=== PATIENT | male | born 1970 | race Caucasian/White ===

== ENCOUNTER 2016-06-10 19:21 | Emergency (ER) | payer OTHER ==
[~2016-06-10] VITALS: Ht 193 cm; Wt 119.5 kg
[~2016-06-10 19:21] MED LIST: ALKA-SELTZER D1 EACH PO; ALKA-SELTZER P1 EAC2 PO; AMOX TR-K CLV1 EAC4 PO; ASPIR-LOW81 MG PO; BENZTROPINE ME0.5 MG PO; CELEXA20 MG PO; CLINORIL150 MG PO; CYCLOBENZAPRINE10 MG PO; DEPAKOTE ER500 MG PO; DEPAKOTE500 MG PO; ENDOCET 5-3251 EACH PO; FLAX SEED OIL1 EACH PO; FLOMAX0.4 MG PO; HYDROCHLOROTHIA25 MG PO; LITHIUM CARBON300 M1 PO; LITHIUM CARBON300 M2 PO; LITHIUM CARBON300 MG PO; LOVASTATIN40 MG PO; NORCO 5/3251 TABLET PO; NORVASC10 MG PO; PEPTO BISMOL240 ML PO; PRILOSEC20 MG PO; SEROQUEL50 MG PO; TESSALON200 MG PO; TRICOR145 MG PO; TRIFLUOPERAZINE2 MG PO; TYLENOL EXTRA500 MG PO
[2016-06-10 20:18] LABS: MCH 31.6 PG (29.0-34.0); MCHC 32.6 G/DL (30.0-36.0); MCV 96.7 FL (86-99); MEAN PLAT.VOLUME 9.9 uM^3 (9.0-12.4); PLATELET COUNT 209 K/uL (156-360); RBC DIS.WIDTH-CV 11.4 % (11.8-14.6); RBC DIS.WIDTH-SD 40.5 % (39-53); RED BLOOD COUNT 3.93 M/uL (4.00-5.50)
[2016-06-10 20:28] LABS: CHLORIDE 105 mEq/L (99-109); SODIUM 137 mEq/L (136-147)
[2016-06-10 20:29] LABS: GLUCOSE 93 mg/dL (70-99)
[2016-06-10 20:31] LABS: ANION GAP 9 MEQ/L (2-14)
[2016-06-10 20:33] LABS: GFR ESTIMATE (CALCULATED) > 59 mL/min/
[2016-06-10 20:34] LABS: UREA NITROGEN (BUN) 21 mg/dL (9-23)
[2016-06-10 20:41] LABS: TROP-I INTERPRETATION NEGATIVE; TROPONIN-I < 0.01 ng/mL (0.0-0.30)
[2016-06-10 22:17] LABS: TROP-I INTERPRETATION NEGATIVE; TROPONIN-I < 0.01 ng/mL (0.0-0.30)
[2016-06-10 22:49] VITALS: BP 169/102
== END 2016-06-10 22:50 | disposition home or self-care (01) ==
LOC: EME 19:21
PROVIDERS: Emergency Medicine
DX: R07.89 Other chest pain (principal); I10 Essential (primary) hypertension; E78.5 Hyperlipidemia, unspecified; K21.9 Gastro-esophageal reflux disease without esophagitis; F41.9 Anxiety disorder, unspecified; Z87.891 Personal history of nicotine dependence
CPT/HCPCS: 71020; 80048; 83880; 84484; 85027; 93005; 99281; 99284

== ENCOUNTER 2016-08-31 11:52 | Emergency (ER) | payer OTHER ==
[~2016-08-31] VITALS: Ht 180.3 cm; Wt 113.8 kg
[2016-08-31 13:24] LABS: HEMATOCRIT 40.1 % (38.0-50.0); MCH 31.5 PG (29.0-34.0); MCHC 31.9 G/DL (30.0-36.0); MCV 98.8 FL (86-99); MEAN PLAT.VOLUME 12.3 uM^3 (9.0-12.4); PLATELET COUNT 53 K/uL (156-360); RBC DIS.WIDTH-CV 11.2 % (11.8-14.6); RBC DIS.WIDTH-SD 41.1 % (39-53); RED BLOOD COUNT 4.06 M/uL (4.00-5.50); WHITE BLOOD COUNT 6.9 K/uL (4.1-10.2)
[2016-08-31 13:32] LABS: CHLORIDE 103 mEq/L (99-109); POTASSIUM 4.3 mEq/L (3.7-5.4); SODIUM 136 mEq/L (136-147)
[2016-08-31 13:34] LABS: GLUCOSE 105 mg/dL (70-99)
[2016-08-31 13:36] LABS: ANION GAP 10 MEQ/L (2-14)
[2016-08-31 13:38] LABS: GFR ESTIMATE (CALCULATED) > 59 mL/min/
[2016-08-31 13:39] LABS: UREA NITROGEN (BUN) 23 mg/dL (9-23)
[2016-08-31 13:48] LABS: TROP-I INTERPRETATION NEGATIVE; TROPONIN-I < 0.01 ng/mL (0.0-0.30)
[2016-08-31 16:16] LABS: D-DIMER ELISA < 0.15 mg/L FEU (< 0.57); TROP-I INTERPRETATION NEGATIVE; TROPONIN-I < 0.01 ng/mL (0.0-0.30)
[2016-08-31 17:58] VITALS: BP 129/91
== END 2016-08-31 18:05 | disposition home or self-care (01) ==
LOC: EME 11:52
PROVIDERS: Emergency Medicine
DX: R07.9 Chest pain, unspecified (principal); I10 Essential (primary) hypertension; E78.5 Hyperlipidemia, unspecified; K21.9 Gastro-esophageal reflux disease without esophagitis; R56.9 Unspecified convulsions; Z79.82 Long term (current) use of aspirin; Z87.891 Personal history of nicotine dependence
CPT/HCPCS: 71020; 80048; 84484; 85027; 85379; 93005; 99281; 99284

== ENCOUNTER 2016-10-25 22:04 | Emergency (ER) | payer OTHER ==
[~2016-10-25] VITALS: Ht 182.9 cm; Wt 116.5 kg
[2016-10-25 22:54] LABS: HEMATOCRIT 39.3 % (38.0-50.0); MCHC 33.1 G/DL (30.0-36.0); MCV 93.8 FL (86-99); MEAN PLAT.VOLUME 9.8 uM^3 (9.0-12.4); PLATELET COUNT 183 K/uL (156-360); RBC DIS.WIDTH-CV 11.1 % (11.8-14.6); RED BLOOD COUNT 4.19 M/uL (4.00-5.50); WHITE BLOOD COUNT 7.6 K/uL (4.1-10.2)
[2016-10-25 23:04] LABS: CHLORIDE 101 mEq/L (99-109); POTASSIUM 3.6 mEq/L (3.7-5.4); SODIUM 135 mEq/L (136-147)
[2016-10-25 23:06] LABS: GLUCOSE 96 mg/dL (70-99)
[2016-10-25 23:07] LABS: ANION GAP 10 MEQ/L (2-14)
[2016-10-25 23:08] LABS: TOTAL BILIRUBIN 0.4 mg/dL (0.0-1.0)
[2016-10-25 23:09] LABS: ALKALINE PHOSPHATASE 52 IU/L (3-129); GFR ESTIMATE (CALCULATED) > 59 mL/min/
[2016-10-25 23:11] LABS: UREA NITROGEN (BUN) 16 mg/dL (9-23)
[2016-10-25 23:13] LABS: LIPASE 42 U/L (1.0-51.0)
[2016-10-26 00:41] LABS: TROP-I INTERPRETATION NEGATIVE; TROPONIN-I < 0.01 ng/mL (0.0-0.30)
[2016-10-26 01:08] LABS: ADD MIUA? NO; BILIRUBIN NEGATIVE; BLOOD NEGATIVE; COLOR YELLOW ((YELLOW)); GLUCOSE (STRIP) NEGATIVE; KETONES NEGATIVE; LEUKOCYTES NEGATIVE; NITRITE NEGATIVE; PROTEIN (STRIP) NEGATIVE; SPECIFIC GRAVITY 1.011 (1.000-1.030); UCUL ADDED? NO
[2016-10-26 02:38] LABS: TROP-I INTERPRETATION NEGATIVE; TROPONIN-I < 0.01 ng/mL (0.0-0.30)
[2016-10-26] MEDS ORDERED: CARAFATE1 GM PO (04:40)
[2016-10-26 05:02] VITALS: BP 150/103
== END 2016-10-26 05:03 | disposition home or self-care (01) ==
LOC: EME 22:04
PROVIDERS: Emergency Medicine
DX: R07.9 Chest pain, unspecified (principal); R10.10 Upper abdominal pain, unspecified; I10 Essential (primary) hypertension; E78.5 Hyperlipidemia, unspecified; K21.9 Gastro-esophageal reflux disease without esophagitis; G40.909 Epilepsy, unspecified, not intractable, without status epilepticus; Z87.891 Personal history of nicotine dependence
CPT/HCPCS: 71020; 74177; 80053; 81003; 83690; 84484; 85027; 93005; 99281; 99285; J7030

== ENCOUNTER → 2016-11-30 | Outpatient (CLI) | payer MEDICARE, OTHER ==
[~2016-11-30] MED LIST changes: +CARAFATE1 GM PO
== END | disposition home or self-care (01) ==
LOC: CDC 09:30
DX: Z01.810 Encounter for preprocedural cardiovascular examination (principal); M25.561 Pain in right knee; M23.251 Derangement of posterior horn of lateral meniscus due to old tear or injury, right knee; M22.2X9 Patellofemoral disorders, unspecified knee; I45.4 Nonspecific intraventricular block; R94.31 Abnormal electrocardiogram [ECG] [EKG]
CPT/HCPCS: 93000

== ENCOUNTER 2016-12-29 09:09 | Observation (INO) | payer OTHER ==
[~2016-12-29] VITALS: Ht 185.4 cm; Wt 111.7 kg
[~2016-12-29 09:09] MED LIST changes: -ASPIR-LOW81 MG PO; +BAYER CHEWABLE81 MG PO
[2016-12-29 09:45] LABS: EOSINOPHIL (%) 0.3 % (0-5); HEMATOCRIT 42.9 % (38.0-50.0); IMMATURE GRANULOCYTE (%) 1.5 % (0.0-0.7); IMMATURE GRANULOCYTE COUNT 0.1 K/uL; INSTRUMENT ABS NEUTROPHIL CT 3.2 K/uL; LYMPHOCYTE COUNT 1.8 K/uL (1.0-2.8); MCH 30.5 PG (29.0-34.0); MCHC 32.9 G/DL (30.0-36.0); MCV 92.9 FL (86-99); MEAN PLAT.VOLUME 10.3 uM^3 (9.0-12.4); MONOCYTE (%) 12.6 % (3-12); MONOCYTE COUNT 0.7 K/uL (0-0.8); NEUTROPHIL COUNT 3.2 K/uL (1.8-6.4); PLATELET COUNT 243 K/uL (156-360); RBC DIS.WIDTH-CV 11.2 % (11.8-14.6); RBC DIS.WIDTH-SD 38.2 % (39-53); RED BLOOD COUNT 4.62 M/uL (4.00-5.50); WHITE BLOOD COUNT 5.9 K/uL (4.1-10.2)
[2016-12-29 10:05] LABS: TROP-I INTERPRETATION NEGATIVE; TROPONIN-I < 0.01 ng/mL (0.0-0.30)
[2016-12-29 10:45] LABS: CHLORIDE 104 mEq/L (99-109); POTASSIUM 4.4 mEq/L (3.7-5.4); SODIUM 139 mEq/L (136-147)
[2016-12-29 10:47] LABS: GLUCOSE 129 mg/dL (70-99)
[2016-12-29 10:48] LABS: ANION GAP 12 MEQ/L (2-14)
[2016-12-29 10:50] LABS: GFR ESTIMATE (CALCULATED) > 59 mL/min/
[2016-12-29 10:51] LABS: UREA NITROGEN (BUN) 17 mg/dL (9-23)
[2016-12-29] MEDS ORDERED: HYDROCHLOROTH12.5 M3 PO (12:27)
[2016-12-29] MEDS ORDERED: PROTONIX40 MG PO (12:29)
[2016-12-29] MEDS ORDERED: MOTRIN800 MG PO (12:55)
[2016-12-29] MEDS ORDERED: BENGAY ULTRA S113 GM TP (12:58)
[2016-12-29] MEDS ORDERED: MELATONIN3 MG PO (12:58)
[2016-12-29 14:00] VITALS: BP 121/86
[2016-12-29 15:32] VITALS: BP 132/85
[2016-12-29 16:10] LABS: TROP-I INTERPRETATION NEGATIVE; TROPONIN-I < 0.01 ng/mL (0.0-0.30)
[2016-12-29 19:00] VITALS: BP 137/83
[2016-12-29 22:04] LABS: TROP-I INTERPRETATION NEGATIVE; TROPONIN-I < 0.01 ng/mL (0.0-0.30)
[2016-12-30 00:30] VITALS: BP 160/87
[2016-12-30 04:07] VITALS: BP 130/77
[2016-12-30 07:17] VITALS: BP 113/59
[2016-12-30 10:34] VITALS: BP 133/78
[2016-12-30] MEDS ORDERED: LOPRESSOR25 MG PO (12:15)
== END 2016-12-30 15:59 | disposition home or self-care (01) ==
LOC: EME 09:09 → 5WEST 11:43 → EDOF 11:43 → ENRESERV 11:49 → 5WEST 13:27
PROVIDERS: Emergency Medicine; Internal Medicine
DX: R07.89 Other chest pain (principal); R94.31 Abnormal electrocardiogram [ECG] [EKG]; I16.0 Hypertensive urgency; I10 Essential (primary) hypertension; E78.5 Hyperlipidemia, unspecified; G40.909 Epilepsy, unspecified, not intractable, without status epilepticus; F79 Unspecified intellectual disabilities; R42 Dizziness and giddiness; K21.9 Gastro-esophageal reflux disease without esophagitis; Z87.891 Personal history of nicotine dependence
CPT/HCPCS: 71010; 80048; 84484; 85025; 93005; 99281; 99285; G0378; J1650; J2270

== ENCOUNTER 2017-01-04 18:28 | Emergency (ER) | payer OTHER ==
[~2017-01-04] VITALS: Ht 188 cm; Wt 110.0 kg
[~2017-01-04 18:28] MED LIST changes: +BENGAY ULTRA S113 GM TP; +HYDROCHLOROTH12.5 M3 PO; +LOPRESSOR25 MG PO; +MELATONIN3 MG PO; +MOTRIN800 MG PO; +PROTONIX40 MG PO
[2017-01-04 18:53] LABS: HEMATOCRIT 40.7 % (38.0-50.0); MCH 31.4 PG (29.0-34.0); MCHC 33.9 G/DL (30.0-36.0); MCV 92.5 FL (86-99); MEAN PLAT.VOLUME 10.3 uM^3 (9.0-12.4); PLATELET COUNT 249 K/uL (156-360); RBC DIS.WIDTH-CV 11.3 % (11.8-14.6); RBC DIS.WIDTH-SD 38.6 % (39-53); WHITE BLOOD COUNT 7.5 K/uL (4.1-10.2)
[2017-01-04 19:06] LABS: CHLORIDE 108 mEq/L (99-109); POTASSIUM 3.7 mEq/L (3.7-5.4); SODIUM 139 mEq/L (136-147)
[2017-01-04 19:06] LABS: D-DIMER ELISA < 150.00 ng/mLDDU (<230)
[2017-01-04 19:08] LABS: GLUCOSE 134 mg/dL (70-99)
[2017-01-04 19:12] LABS: ALKALINE PHOSPHATASE 46 IU/L (3-129); ANION GAP 12 MEQ/L (2-14); GFR ESTIMATE (CALCULATED) > 59 mL/min/
[2017-01-04 19:13] LABS: TOTAL BILIRUBIN 0.4 mg/dL (0.0-1.0); UREA NITROGEN (BUN) 22 mg/dL (9-23)
[2017-01-04 19:15] LABS: TROP-I INTERPRETATION NEGATIVE; TROPONIN-I < 0.01 ng/mL (0.0-0.30)
[2017-01-04 19:18] LABS: LIPASE 46 U/L (1.0-51.0)
[2017-01-04 21:04] LABS: TROP-I INTERPRETATION NEGATIVE; TROPONIN-I < 0.01 ng/mL (0.0-0.30)
[2017-01-04 21:54] VITALS: BP 148/103
[2017-01-05] MEDS ORDERED: TYLENOL WITH C1 EACH PO (13:01)
== END 2017-01-04 21:54 | disposition home or self-care (01) ==
LOC: EME 18:28
PROVIDERS: Emergency Medicine
DX: R07.9 Chest pain, unspecified (principal); E78.5 Hyperlipidemia, unspecified; I10 Essential (primary) hypertension; K21.9 Gastro-esophageal reflux disease without esophagitis; R56.9 Unspecified convulsions; N40.0 Benign prostatic hyperplasia without lower urinary tract symptoms; F41.9 Anxiety disorder, unspecified; Z87.891 Personal history of nicotine dependence
CPT/HCPCS: 80048; 80053; 83690; 84484; 85027; 85379; 93005; 99281; 99285; J7030

== ENCOUNTER 2017-01-05 08:30 | Emergency (ER) | payer OTHER ==
[~2017-01-05] VITALS: Ht 188 cm; Wt 113.8 kg
[2017-01-05 09:19] LABS: BASOPHIL COUNT 0.1 K/uL (0-0.1); EOSINOPHIL (%) 0.7 % (0-5); EOSINOPHIL COUNT 0.1 K/uL (0-0.3); HEMATOCRIT 40.7 % (38.0-50.0); IMMATURE GRANULOCYTE (%) 1.4 % (0.0-0.7); IMMATURE GRANULOCYTE COUNT 0.1 K/uL; INSTRUMENT ABS NEUTROPHIL CT 4.1 K/uL; LYMPHOCYTE COUNT 2.4 K/uL (1.0-2.8); MCH 30.9 PG (29.0-34.0); MCHC 32.9 G/DL (30.0-36.0); MCV 93.8 FL (86-99); MEAN PLAT.VOLUME 10.2 uM^3 (9.0-12.4); MONOCYTE (%) 11.2 % (3-12); MONOCYTE COUNT 0.9 K/uL (0-0.8); NEUTROPHIL (%) 54.1 % (45-76); NEUTROPHIL COUNT 4.1 K/uL (1.8-6.4); PLATELET COUNT 228 K/uL (156-360); RBC DIS.WIDTH-CV 11.4 % (11.8-14.6); RBC DIS.WIDTH-SD 39.1 % (39-53); RED BLOOD COUNT 4.34 M/uL (4.00-5.50); WHITE BLOOD COUNT 7.6 K/uL (4.1-10.2)
[2017-01-05 09:36] LABS: CHLORIDE 105 mEq/L (99-109); POTASSIUM 3.8 mEq/L (3.7-5.4); SODIUM 139 mEq/L (136-147)
[2017-01-05 09:39] LABS: GLUCOSE 104 mg/dL (70-99)
[2017-01-05 09:40] LABS: ANION GAP 11 MEQ/L (2-14)
[2017-01-05 09:42] LABS: ALKALINE PHOSPHATASE 48 IU/L (3-129); GFR ESTIMATE (CALCULATED) > 59 mL/min/
[2017-01-05 09:43] LABS: UREA NITROGEN (BUN) 18 mg/dL (9-23)
[2017-01-05 09:46] LABS: LIPASE 31 U/L (1.0-51.0); TROP-I INTERPRETATION NEGATIVE; TROPONIN-I < 0.01 ng/mL (0.0-0.30)
[2017-01-05 09:47] LABS: TOTAL BILIRUBIN 0.6 mg/dL (0.0-1.0)
[2017-01-05 11:53] LABS: TROP-I INTERPRETATION NEGATIVE; TROPONIN-I < 0.01 ng/mL (0.0-0.30)
[2017-01-05] MEDS ORDERED: TYLENOL WITH C1 EACH PO (13:01)
[2017-01-05 13:19] VITALS: BP 146/97
== END 2017-01-05 13:19 | disposition home or self-care (01) ==
LOC: EME 08:30
PROVIDERS: Emergency Medicine
DX: R07.89 Other chest pain (principal); R10.9 Unspecified abdominal pain; E78.5 Hyperlipidemia, unspecified; I10 Essential (primary) hypertension; K21.9 Gastro-esophageal reflux disease without esophagitis; F70 Mild intellectual disabilities; F41.9 Anxiety disorder, unspecified; R56.9 Unspecified convulsions; Z87.891 Personal history of nicotine dependence
CPT/HCPCS: 71010; 80053; 83690; 84484; 85025; 93005; 99281; 99285; J1885

== ENCOUNTER 2017-03-03 15:50 | Emergency (ER) | payer OTHER ==
[~2017-03-03] VITALS: Ht 188 cm; Wt 118.2 kg
[~2017-03-03 15:50] MED LIST changes: +TYLENOL WITH C1 EACH PO
[2017-03-03 16:53] LABS: HEMATOCRIT 39.8 % (38.0-50.0); HEMOGLOBIN 13.1 G/DL (12.5-16.6); MCH 30.5 PG (29.0-34.0); MCHC 32.9 G/DL (30.0-36.0); MCV 92.8 FL (86-99); PLATELET COUNT 215 K/uL (156-360); RBC DIS.WIDTH-CV 12.1 % (11.8-14.6); RBC DIS.WIDTH-SD 41.6 % (39-53); RED BLOOD COUNT 4.29 M/uL (4.00-5.50); WHITE BLOOD COUNT 10.8 K/uL (4.1-10.2)
[2017-03-03 17:09] LABS: CHLORIDE 107 mEq/L (99-109); POTASSIUM 4.1 mEq/L (3.7-5.4); SODIUM 139 mEq/L (136-147)
[2017-03-03 17:11] LABS: GLUCOSE 119 mg/dL (70-99)
[2017-03-03 17:15] LABS: CREATININE 0.9 mg/dL (0.6-1.3); GFR ESTIMATE (CALCULATED) > 59 mL/min/ (58.99-99999)
[2017-03-03 17:16] LABS: TROP-I INTERPRETATION NEGATIVE; TROPONIN-I < 0.01 ng/mL (0.0-0.30); UREA NITROGEN (BUN) 16 mg/dL (9-23)
[2017-03-03 19:44] VITALS: BP 147/105
== END 2017-03-03 20:22 | disposition home or self-care (01) ==
LOC: EME 15:50
PROVIDERS: Emergency Medicine Emergency Medical Services
DX: R07.9 Chest pain, unspecified (principal); R10.9 Unspecified abdominal pain; F41.9 Anxiety disorder, unspecified; K21.9 Gastro-esophageal reflux disease without esophagitis; I10 Essential (primary) hypertension; E78.5 Hyperlipidemia, unspecified; R56.9 Unspecified convulsions; N40.0 Benign prostatic hyperplasia without lower urinary tract symptoms; Z87.891 Personal history of nicotine dependence
CPT/HCPCS: 71046; 80048; 84484; 85027; 93005; 99281; 99285; J2060

== ENCOUNTER 2017-06-30 22:49 | Observation (INO) | payer OTHER ==
[~2017-06-30] VITALS: Ht 190.5 cm; Wt 120.0 kg
[2017-06-30 23:28] LABS: HEMATOCRIT 39.9 % (38.0-50.0); HEMOGLOBIN 13.4 G/DL (12.5-16.6); MCH 29.9 PG (29.0-34.0); MCHC 33.6 G/DL (30.0-36.0); MCV 89.1 FL (86-99); PLATELET COUNT 247 K/uL (156-360); RBC DIS.WIDTH-CV 11.9 % (11.8-14.6); RBC DIS.WIDTH-SD 38.5 % (39-53); RED BLOOD COUNT 4.48 M/uL (4.00-5.50); WHITE BLOOD COUNT 7.7 K/uL (4.1-10.2)
[2017-06-30 23:37] LABS: ALBUMIN 4.1 g/dL (3.2-4.8)
[2017-06-30 23:38] LABS: CHLORIDE 101 mEq/L (99-109); POTASSIUM 3.8 mEq/L (3.7-5.4); SODIUM 138 mEq/L (136-147)
[2017-06-30 23:40] LABS: GLUCOSE 101 mg/dL (70-99); TOTAL PROTEIN 6.6 g/dL (6.4-8.3)
[2017-06-30 23:42] LABS: TOTAL BILIRUBIN 0.2 mg/dL (0.0-1.0)
[2017-06-30 23:43] LABS: ALKALINE PHOSPHATASE 54 IU/L (3-129)
[2017-06-30 23:44] LABS: CREATININE 0.8 mg/dL (0.6-1.3); GFR ESTIMATE (CALCULATED) > 59 mL/min/ (58.99-99999)
[2017-06-30 23:45] LABS: AST (GOT) 25 IU/L (2-34); UREA NITROGEN (BUN) 10 mg/dL (9-23)
[2017-06-30 23:46] LABS: ALT (GPT) 25 IU/L (3-49)
[2017-06-30 23:47] LABS: LIPASE 47 U/L (1.0-51.0)
[2017-06-30 23:56] LABS: TROP-I INTERPRETATION NEGATIVE; TROPONIN-I < 0.01 ng/mL (0.0-0.30)
[2017-07-01 02:33] LABS: TROP-I INTERPRETATION NEGATIVE; TROPONIN-I < 0.01 ng/mL (0.0-0.30)
[2017-07-01 03:42] LABS: VALPROIC ACID (DEPAKOTE) 62.1 MCG/ML (50-100)
[2017-07-01] MEDS ORDERED: METOPROLOL TART50 MG PO (04:56)
[2017-07-01] MEDS ORDERED: PRILOSEC20 MG PO (05:06)
[2017-07-01] MEDS ORDERED: DOCUPRENE100 MG PO (05:08)
[2017-07-01] MEDS ORDERED: RANITIDINE HCL300 MG PO (05:11)
[2017-07-01] MEDS ORDERED: CALCIUM 500 MG1 EAC2 PO (05:13)
[2017-07-01 06:20] VITALS: BP 171/97
[2017-07-01 07:09] VITALS: BP 140/81
[2017-07-01 08:42] LABS: TROP-I INTERPRETATION NEGATIVE; TROPONIN-I < 0.01 ng/mL (0.0-0.30)
[2017-07-01] MEDS ORDERED: ZITHROMAX250 MG PO (09:36)
[2017-07-01 11:39] VITALS: BP 175/108
[2017-07-01 15:11] LABS: TROP-I INTERPRETATION NEGATIVE; TROPONIN-I 0.01 ng/mL (0.0-0.30)
== END 2017-07-01 16:12 | disposition home or self-care (01) ==
LOC: EME 22:49 → EDOF 07-01 04:10 → 4SOUTH 07-01 04:10 → ENRESERV 07-01 04:15 → 4SOUTH 07-01 06:00
PROVIDERS: Emergency Medicine; Physician Assistant
DX: J40 Bronchitis, not specified as acute or chronic (principal); R07.89 Other chest pain; I10 Essential (primary) hypertension; E78.5 Hyperlipidemia, unspecified; G40.909 Epilepsy, unspecified, not intractable, without status epilepticus; F70 Mild intellectual disabilities; Z87.891 Personal history of nicotine dependence; Z79.82 Long term (current) use of aspirin
CPT/HCPCS: 71046; 74177; 80053; 80164; 83605; 83690; 84484; 85027; 93005; 99281; 99285; G0378; J1644; J7030; S0028

== ENCOUNTER 2017-08-29 15:12 | Emergency (ER) | payer OTHER ==
[~2017-08-29] VITALS: Ht 182.9 cm; Wt 118.2 kg
[~2017-08-29 15:12] MED LIST changes: +ASPIR 8181 M1 PO; -BAYER CHEWABLE81 MG PO; +CALCIUM 500 MG1 EAC2 PO; +METOPROLOL TART50 MG PO; +RANITIDINE HCL300 MG PO; +SEROQUEL100 MG PO; -SEROQUEL50 MG PO; +STOOL SOFTENER100 M1 PO; +ZITHROMAX250 MG PO
[2017-08-29 16:11] LABS: HEMATOCRIT 41.9 % (38.0-50.0); MCH 29.9 PG (29.0-34.0); MCHC 33.4 G/DL (30.0-36.0); MCV 89.3 FL (86-99); RBC DIS.WIDTH-CV 12.3 % (11.8-14.6); RBC DIS.WIDTH-SD 39.8 % (39-53); RED BLOOD COUNT 4.69 M/uL (4.00-5.50)
[2017-08-29 16:22] LABS: CHLORIDE 104 mEq/L (99-109); POTASSIUM 4.2 mEq/L (3.7-5.4); SODIUM 141 mEq/L (136-147)
[2017-08-29 16:23] LABS: GLUCOSE 99 mg/dL (70-99)
[2017-08-29 16:26] LABS: SERUM ETHYL ALCOHOL < 10 mg/dL
[2017-08-29 16:27] LABS: CREATININE 1.1 mg/dL (0.6-1.3); GFR ESTIMATE (CALCULATED) > 59 mL/min/ (58.99-99999)
[2017-08-29 16:28] LABS: UREA NITROGEN (BUN) 13 mg/dL (9-23)
[2017-08-29 16:35] LABS: PLATELET COUNT 316 K/uL (156-360)
[2017-08-29 17:11] LABS: AMPHETAMINE NEGATIVE (500 ng/mL); BARBITURATES NEGATIVE (200 ng/mL); BENZODIAZEPINES NEGATIVE (150 ng/mL); BUPRENORPHINE NEGATIVE (10 ng/mL); COCAINE NEGATIVE (150 ng/mL); METHADONE NEGATIVE (200 ng/mL); METHAMPHETAMINE NEGATIVE (500 ng/mL); OPIATES (MORPHINE) NEGATIVE (100 ng/mL); OXYCODONE NEGATIVE (100 ng/mL); PHENCYCLIDINE NEGATIVE (25 ng/mL); PROPOXYPHENE NEGATIVE (300 ng/mL); THC CANNABINOIDS NEGATIVE (50 ng/mL); TRICYCLIC ANTIDEPRESSANTS NEGATIVE (300 ng/mL)
[2017-08-29 18:15] VITALS: BP 205/152
[2017-08-31] MEDS ORDERED: CRESTOR40 MG PO (12:34)
[2017-08-31] MEDS ORDERED: MIRALAX17 GM PO (12:40)
[2017-08-31] MEDS ORDERED: [UNRECOGNIZED DRUG - OTHER] TP (12:41)
[2017-08-31] MEDS ORDERED: COLACE100 MG PO (12:41)
== END 2017-08-29 18:16 | disposition home or self-care (01) ==
LOC: EME 15:12
DX: F32.9 Major depressive disorder, single episode, unspecified (principal); I10 Essential (primary) hypertension; E78.5 Hyperlipidemia, unspecified; Z79.82 Long term (current) use of aspirin; Z87.891 Personal history of nicotine dependence
CPT/HCPCS: 80048; 85027; 90839; 99281; 99285; G0480

== ENCOUNTER → 2017-09-02 | Outpatient (CLI) | payer OTHER ==
[~2017-09-02] VITALS: Ht 190.5 cm; Wt 118.4 kg
[~2017-09-02] MED LIST changes: +COLACE100 MG PO; +CRESTOR40 MG PO; +MIRALAX17 GM PO; +[UNRECOGNIZED DRUG - OTHER] TP
== END | disposition home or self-care (01) ==
LOC: AMB 10:30
DX: K29.70 Gastritis, unspecified, without bleeding (principal); K31.7 Polyp of stomach and duodenum; D12.2 Benign neoplasm of ascending colon; D12.3 Benign neoplasm of transverse colon; D12.5 Benign neoplasm of sigmoid colon; K63.5 Polyp of colon; Z86.010 Personal history of colon polyps; K64.8 Other hemorrhoids; I10 Essential (primary) hypertension; E66.3 Overweight; Z68.33 Body mass index [BMI] 33.0-33.9, adult; Z87.891 Personal history of nicotine dependence; G40.909 Epilepsy, unspecified, not intractable, without status epilepticus
CPT/HCPCS: 88305; 88342 TC; J2250

== ENCOUNTER 2017-09-22 03:18 | Emergency (ER) | payer OTHER ==
[~2017-09-22] VITALS: Ht 182.9 cm; Wt 117.0 kg
[2017-09-22 04:12] LABS: BASOPHIL (%) 0.7 % (0-1); BASOPHIL COUNT 0.1 K/uL (0-0.1); EOSINOPHIL (%) 0.9 % (0-5); EOSINOPHIL COUNT 0.1 K/uL (0-0.3); HEMATOCRIT 43.6 % (38.0-50.0); HEMOGLOBIN 14.2 G/DL (12.5-16.6); IMMATURE GRANULOCYTE (%) 1.9 % (0.0-0.7); LYMPHOCYTE (%) 31.5 % (15-42); LYMPHOCYTE COUNT 2.5 K/uL (1.0-2.8); MCH 29.3 PG (29.0-34.0); MCHC 32.6 G/DL (30.0-36.0); MCV 90.1 FL (86-99); MONOCYTE (%) 8.7 % (3-12); MONOCYTE COUNT 0.7 K/uL (0-0.8); NEUTROPHIL (%) 56.3 % (45-76); NEUTROPHIL COUNT 4.5 K/uL (1.8-6.4); PLATELET COUNT 276 K/uL (156-360); RBC DIS.WIDTH-CV 12.7 % (11.8-14.6); RBC DIS.WIDTH-SD 42.1 % (39-53); RED BLOOD COUNT 4.84 M/uL (4.00-5.50)
[2017-09-22 04:23] LABS: ALBUMIN 4.6 g/dL (3.2-4.8); CHLORIDE 102 mEq/L (99-109); POTASSIUM 3.9 mEq/L (3.7-5.4); SODIUM 139 mEq/L (136-147)
[2017-09-22 04:26] LABS: GLUCOSE 106 mg/dL (70-99); TOTAL PROTEIN 7.2 g/dL (6.4-8.3)
[2017-09-22 04:28] LABS: TOTAL BILIRUBIN 0.5 mg/dL (0.0-1.0)
[2017-09-22 04:29] LABS: ALKALINE PHOSPHATASE 65 IU/L (3-129); CREATININE 1.1 mg/dL (0.6-1.3); GFR ESTIMATE (CALCULATED) > 59 mL/min/ (58.99-99999); SERUM ETHYL ALCOHOL < 10 mg/dL
[2017-09-22 04:31] LABS: AST (GOT) 25 IU/L (2-34); UREA NITROGEN (BUN) 13 mg/dL (9-23)
[2017-09-22 04:32] LABS: ALT (GPT) 18 IU/L (3-49)
[2017-09-22 04:33] LABS: LIPASE 30 U/L (1.0-51.0); TROP-I INTERPRETATION NEGATIVE; TROPONIN-I < 0.01 ng/mL (0.0-0.30)
[2017-09-22 05:09] LABS: APPEARANCE CLEAR ((CLEAR)); BILIRUBIN NEGATIVE; BLOOD NEGATIVE; COLOR STRAW ((YELLOW)); GLUCOSE (STRIP) NEGATIVE; KETONES NEGATIVE; LEUKOCYTES NEGATIVE; NITRITE NEGATIVE; PROTEIN (STRIP) NEGATIVE; SPECIFIC GRAVITY 1.006 (1.000-1.030); UCUL ADDED? NO; UROBILINOGEN 0.2 MG/DL (0.2-1.0)
[2017-09-22 06:34] VITALS: BP 129/99
== END 2017-09-22 06:36 | disposition home or self-care (01) ==
LOC: EME → EDBD 03:18 → EME 06:36
PROVIDERS: Emergency Medicine
DX: R07.9 Chest pain, unspecified (principal); E78.5 Hyperlipidemia, unspecified; F41.9 Anxiety disorder, unspecified; N40.0 Benign prostatic hyperplasia without lower urinary tract symptoms; Z86.69 Personal history of other diseases of the nervous system and sense organs; Z87.891 Personal history of nicotine dependence
CPT/HCPCS: 71046; 80053; 81003; 83690; 84484; 85025; 93005; 99281; 99285; G0480; J2270; J2405; J7030